=== PATIENT | female | born 2000 | race Hispanic/Latino ===

== ENCOUNTER 2022-07-01 20:40 | Emergency (ER) ==
[~2022-07-01] VITALS: Ht 165.1 cm; Wt 101.6 kg
[2022-07-01] MEDS ORDERED: PRENTAB9 PO (21:11)
== END 2022-07-01 21:18 | disposition admitted as inpatient to this hospital (09) ==
LOC: M ED 20:40
DX: R10.2 Pelvic and perineal pain (principal); Z3A.31 31 weeks gestation of pregnancy

== ENCOUNTER 2022-07-01 20:54 | Outpatient (CLI) ==
[~2022-07-01] VITALS: Ht 165.1 cm; Wt 101.4 kg
[2022-07-01] MEDS ORDERED: PRENTAB9 PO (21:11)
[2022-07-01 21:24] VITALS: BP 142/75
[2022-07-01 21:56] VITALS: BP 137/90
[2022-07-01] MEDS ORDERED: FLUCONAZOLE 50MG TABLET PO ONE (22:35)
[2022-07-02 00:02] LABS: GC DNA AMPLIFICATION NEGATIVE (NEGATIVE)
== END 2022-07-01 23:05 | disposition home or self-care (01) ==
LOC: M LDO 20:54
PROVIDERS: ATTEND Obstetrics & Gynecology
DX: O23.593 Infection of other part of genital tract in pregnancy, third trimester (principal); Z3A.31 31 weeks gestation of pregnancy
CPT/HCPCS: 59025; 76815; 81000; 81015; 87086; 87661; 87810; 87850; G0463

== ENCOUNTER 2022-07-22 08:17 | Inpatient (IN) | payer OTHER, SELFPAY ==
[2022-07-22] VITALS (67 sets, daily range): BP systolic 123–167; BP diastolic 69–110
[~2022-07-22] VITALS: Ht 167.6 cm; Wt 107.9 kg
[~2022-07-22 08:17] MED LIST: PRENTAB9 PO
[2022-07-22 10:02] LABS: CREATININE,RANDOM URINE 117.2 MG/DL
[2022-07-22 10:14] LABS: HEMATOCRIT 35.8 % (36.0-47.0); HEMOGLOBIN 11.9 g/dl (12.0-15.5); MEAN CORPUSCULAR HGB CONC 33.2 g/dl (32.0-36.5); MEAN CORPUSCULAR VOLUME 90.2 fl (80.0-96.0); PLATELET COUNT, AUTOMATED 258 10^3/uL (150-450); RED BLOOD COUNT 3.97 10^6/uL (4.00-5.40); WHITE BLOOD COUNT 10.3 10^3/uL (4.0-10.0)
[2022-07-22 10:37] LABS: URIC ACID 8.4 MG/DL (3.1-7.8)
[2022-07-22 10:40] LABS: ALKALINE PHOSPHATASE 191 U/L (46-116); ALT/SGPT 13 U/L (7.0-40); AST/SGOT 21 U/L (<34); BILIRUBIN,TOTAL 0.4 MG/DL (0.3-1.2); BLOOD UREA NITROGEN 19 MG/DL (9-23); CALCIUM LEVEL 8.8 MG/DL (8.5-10.1); CARBON DIOXIDE LEVEL 20 MMOL/L (20-31); CHLORIDE LEVEL 105 MMOL/L (98-107); CREATININE FOR GFR 0.91 MG/DL (0.55-1.30); GLOMERULAR FILTRATION RATE > 60.0 (>60); GLUCOSE, FASTING 64 MG/DL (60-100); POTASSIUM SERUM 4.7 MMOL/L (3.5-5.1); SODIUM LEVEL 135 MMOL/L (136-145); TOTAL PROTEIN 5.2 G/DL (5.7-8.2)
[2022-07-22] MEDS ORDERED: LIDOCAINE 1% MDV 20ML VIAL INFIL PRN (11:20)
[2022-07-22] MEDS ORDERED: PENICILLIN G POTASSIUM 5 MU IV 5 MU in D5W MINI-BAG PLUS 100 ML IV ONE (11:20)
[2022-07-22] MEDS ORDERED: CARBOPROST TROMETHAMINE 250 MCG/ML AMP IM PRN (11:20)
[2022-07-22] MEDS ORDERED: OXYTOCIN DRIP 30 UNITS in IV 1 EA IV PRN (11:20)
[2022-07-22] MEDS ORDERED: MAG Sulf (L&D) 4 GM/100 ML 4 GM in IV 1 EA IV ONE (11:20)
[2022-07-22] MEDS ORDERED: TRANEXAMIC ACID INJection 1,000 MG in NS 100 ML IV PRN (11:20)
[2022-07-22 11:32] LABS: TOTAL PROTEIN,RANDOM URINE 715.1 MG/DL (0.0-14.0)
[2022-07-22] MEDS: LR 1,000 ML IV SCH ×2 (11:57→22:12)
[2022-07-22] MEDS: BETAMETHASONE SOLUSPAN 6MG/ML 5ML VIAL IM SCH (12:03)
[2022-07-22] MEDS: MAG Sulf (OBGYN) 20GM/500ML 20,000 MG in IV 1 EA IV SCH ×2 (12:15→21:22)
[2022-07-22] MEDS: metroNIDAZOLE 70GM VAGINAL GEL PV SCH ×2 (12:30→19:57)
[2022-07-22 13:22] LABS: GC DNA AMPLIFICATION NEGATIVE (NEGATIVE)
[2022-07-22] MEDS ORDERED: OXYTOCIN DRIP 30 UNITS in IV 1 EA IV SCH (15:00)
[2022-07-22] MEDS ORDERED: LR 1,000 ML IV SCH (15:15)
[2022-07-22] MEDS: PEN G POT 3,000,000 UNIT/50 ML 3,000,000 UNIT in IV 1 EA IV SCH ×2 (16:37→20:00)
[2022-07-22 19:57] LABS: BASO % 0.2 % (0.0-1.0); HEMATOCRIT 38.4 % (36.0-47.0); HEMOGLOBIN 12.8 g/dl (12.0-15.5); LYMPH # 1.2 10^3/uL (1.5-5.0); LYMPH % 10.1 % (24.0-44.0); MEAN CORPUSCULAR HEMOGLOBIN 29.8 pg (27.0-33.0); MEAN CORPUSCULAR HGB CONC 33.3 g/dl (32.0-36.5); MEAN CORPUSCULAR VOLUME 89.3 fl (80.0-96.0); MONO # 0.2 10^3/uL (0.0-0.8); MONO % 1.3 % (2.0-8.0); NEUTROPHILS # 10.3 10^3/uL (1.5-8.5); PLATELET COUNT, AUTOMATED 283 10^3/uL (150-450); WHITE BLOOD COUNT 11.7 10^3/uL (4.0-10.0)
[2022-07-22 20:08] LABS: URIC ACID 8.5 MG/DL (3.1-7.8)
[2022-07-22 20:09] LABS: INR 0.93; PROTHROMBIN TIME 12.7 SECONDS (12.5-14.5)
[2022-07-22 20:10] LABS: LDH LACTATE DEHYDROGENASE 224 U/L (120-246)
[2022-07-22 20:11] LABS: ALKALINE PHOSPHATASE 203 U/L (46-116); ALT/SGPT 13 U/L (7.0-40); AST/SGOT 25 U/L (<34); BILIRUBIN,TOTAL 0.5 MG/DL (0.3-1.2); BLOOD UREA NITROGEN 16 MG/DL (9-23); CALCIUM LEVEL 8.6 MG/DL (8.5-10.1); CARBON DIOXIDE LEVEL 16 MMOL/L (20-31); CHLORIDE LEVEL 103 MMOL/L (98-107); CREATININE FOR GFR 0.82 MG/DL (0.55-1.30); GLOMERULAR FILTRATION RATE > 60.0 (>60); GLUCOSE, FASTING 110 MG/DL (60-100); POTASSIUM SERUM 5.1 MMOL/L (3.5-5.1); SODIUM LEVEL 134 MMOL/L (136-145); TOTAL PROTEIN 5.4 G/DL (5.7-8.2)
[2022-07-22] MEDS ORDERED: BUTORPHANOL 2 MG/ML 1ML VIAL IV ONE (20:20)
[2022-07-22] MEDS ORDERED: PROMETHAZINE 25MG/ML 1ML VIAL IV ONE ×2 (20:20→20:25)
[2022-07-23] VITALS (47 sets, daily range): BP systolic 107–163; BP diastolic 60–98
[2022-07-23] MEDS ORDERED: METHYLERGONOVINE MALEATE 0.2 MG/ML VIAL (J2210) IM STA (01:48)
[2022-07-23] MEDS ORDERED: IBUPROFEN 800 MG TAB PO PRN (02:05)
[2022-07-23] MEDS ORDERED: IBUPROFEN 600MG TAB PO PRN (02:05)
[2022-07-23] MEDS ORDERED: METHYLERGONOVINE MALEATE 0.2 MG TAB PO PRN (02:05)
[2022-07-23] MEDS ORDERED: RHOGAM 300MCG (1500IU) INJ IM SCH (02:05)
[2022-07-23] MEDS ORDERED: ACETAMINOPHEN 500 MG TAB PO PRN (02:05)
[2022-07-23] MEDS ORDERED: ANUSOL HC CREAM 30GM TOP PRN (02:05)
[2022-07-23] MEDS ORDERED: DOCUSATE SODIUM 100MG CAPSULE PO PRN (02:05)
[2022-07-23] MEDS ORDERED: ACETAMINOPHEN TAB 650MG DOSE (2X325MG) PO PRN (02:05)
[2022-07-23] MEDS ORDERED: DIBUCAINE 1% OINTMENT 30GM TOP PRN (02:05)
[2022-07-23] MEDS: LR 1,000 ML IV SCH ×3 (03:20→15:50)
[2022-07-23] MEDS: MAG Sulf (OBGYN) 20GM/500ML 20,000 MG in IV 1 EA IV SCH ×2 (06:18→16:29)
[2022-07-23] MEDS: BETAMETHASONE SOLUSPAN 6MG/ML 5ML VIAL IM SCH (06:30)
[2022-07-23 07:17] LABS: LDH LACTATE DEHYDROGENASE 341 U/L (120-246)
[2022-07-23 07:18] LABS: ALT/SGPT 13 U/L (7.0-40); AST/SGOT 27 U/L (<34); BILIRUBIN,TOTAL 0.5 MG/DL (0.3-1.2); CREATININE FOR GFR 0.92 MG/DL (0.55-1.30); GLOMERULAR FILTRATION RATE > 60.0 (>60)
[2022-07-23] MEDS: PRENATAL VITAMINS CHEWABLE TABLET PO SCH (08:28)
[2022-07-23] MEDS: LABETALOL 200 MG TAB PO SCH ×2 (08:28→22:25)
[2022-07-24] VITALS (9 sets, daily range): BP systolic 110–180; BP diastolic 68–98
[2022-07-24 08:32] LABS: HEMATOCRIT 32.2 % (36.0-47.0); MEAN CORPUSCULAR HEMOGLOBIN 30.1 pg (27.0-33.0); MEAN CORPUSCULAR HGB CONC 32.9 g/dl (32.0-36.5); MEAN CORPUSCULAR VOLUME 91.5 fl (80.0-96.0); PLATELET COUNT, AUTOMATED 244 10^3/uL (150-450); RED BLOOD COUNT 3.52 10^6/uL (4.00-5.40); WHITE BLOOD COUNT 12.5 10^3/uL (4.0-10.0)
[2022-07-24 08:34] LABS: HEMOGLOBIN 10.6 g/dl (12.0-15.5)
[2022-07-24] MEDS: LABETALOL 200 MG TAB PO SCH (11:20)
[2022-07-24] MEDS: PRENATAL VITAMINS CHEWABLE TABLET PO SCH (11:21)
[2022-07-24] MEDS ORDERED: LABETALOL 200 MG TAB PO STA (18:55)
[2022-07-25] VITALS (12 sets, daily range): BP systolic 138–187; BP diastolic 76–110
[2022-07-25] MEDS: NIFEdipine 30MG XL TAB PO SCH ×2 (02:44→09:00)
[2022-07-25] MEDS ORDERED: LABETALOL 200 MG TAB PO ONE (06:20)
[2022-07-25] MEDS ORDERED: MEASLES,MUMPS,RUBELLA VACCINE INJ (MMR-II) SC.IMMUN ONE (09:00)
[2022-07-25] MEDS: LABETALOL 200 MG TAB PO SCH ×2 (10:14→18:12)
[2022-07-25] MEDS: PRENATAL VITAMINS CHEWABLE TABLET PO SCH (10:15)
[2022-07-25] MEDS ORDERED: LABETALOL 200 MG TAB PO SCH (18:00)
[2022-07-26] VITALS (7 sets, daily range): BP systolic 138–168; BP diastolic 82–90
[2022-07-26] MEDS: LABETALOL 200 MG TAB PO SCH ×3 (02:06→18:14)
[2022-07-26] MEDS ORDERED: LABE20TAB PO (07:51)
[2022-07-26] MEDS ORDERED: IBUP80TA PO (07:51)
[2022-07-26] MEDS ORDERED: ACET-683 PO (07:51)
[2022-07-26] MEDS ORDERED: NIFE1TAB52 PO (07:51)
[2022-07-26] MEDS: PRENATAL VITAMINS CHEWABLE TABLET PO SCH (09:11)
[2022-07-26] MEDS: NIFEdipine 30MG XL TAB PO SCH (09:11)
[2022-07-27] VITALS (8 sets, daily range): BP systolic 111–166; BP diastolic 62–118
[2022-07-27] MEDS: LABETALOL 200 MG TAB PO SCH ×3 (01:54→18:07)
[2022-07-27] MEDS ORDERED: LABETALOL 200 MG TAB PO ONE (07:00)
[2022-07-27] MEDS: PRENATAL VITAMINS CHEWABLE TABLET PO SCH (09:15)
[2022-07-27] MEDS: NIFEdipine 30MG XL TAB PO SCH (09:17)
[2022-07-28 02:00] VITALS: BP 122/76
[2022-07-28] MEDS: LABETALOL 200 MG TAB PO SCH ×2 (02:05→10:00)
[2022-07-28 06:05] VITALS: BP 125/77
[2022-07-28] MEDS: PRENATAL VITAMINS CHEWABLE TABLET PO SCH (08:28)
[2022-07-28] MEDS: NIFEdipine 30MG XL TAB PO SCH (08:30)
[2022-07-28 10:00] VITALS: BP_SYST 109; BP_SYST 114; BP_DIAS 55; BP_DIAS 68
[2022-07-28 10:30] VITALS: BP 114/68
== END 2022-07-28 14:11 | disposition home or self-care (01) | DRG 805 ==
LOC: M LDO 08:17 → M LDI 11:12 → M OBS 07-24 06:08
PROVIDERS: ADMIT Registered Nurse; ATTEND Registered Nurse
PROC: 10E0XZZ Delivery of Products of Conception, External Approach (ICD-10-PCS; principal; 2022-07-23)
DX: O60.14X0 Preterm labor third trimester with preterm delivery third trimester, not applicable or unspecified (principal); Z37.0 Single live birth; O45.93 Premature separation of placenta, unspecified, third trimester; O14.14 Severe pre-eclampsia complicating childbirth; Z3A.34 34 weeks gestation of pregnancy; O75.89 Other specified complications of labor and delivery